=== PATIENT | male | born 1995 | race Caucasian/White ===

== ENCOUNTER 2025-06-21 10:57 | Emergency (ER) | payer SELFPAY ==
[2025-06-21] MEDS: Ondansetron 4 MG Tab.DIS PO ONE (11:49)
== END 2025-06-21 12:37 | disposition home or self-care (01) ==
LOC: MW.ED 10:57
DX: A08.4 Viral intestinal infection, unspecified (principal); Z11.52 Encounter for screening for COVID-19
CPT/HCPCS: 87428; 99284; A9270; 99283